=== PATIENT | female | born 1970 | race Caucasian/White ===

== ENCOUNTER → 2017-02-12 | Outpatient (CLI) | payer BC ==
--- NOTE | 2017-02-12 15:17 | RAD ---
EXAM: BREAST LEFT, DIGITAL DIAGNOSTIC BILATERAL HISTORY: Left breast lump at 7-8:00 position. COMPARISON: Priors including 04/29/2014 Standard mammographic views are obtained of the bilateral breasts. FINDINGS: The breast parenchyma Is heterogenously dense, which could reduce sensitivity of mammography. Breast parenchyma level III.. There is no definite new suspicious spiculated mass or worrisome new cluster of microcalcifications. The patient was then sent ultrasound to further evaluate the region of concern for lump. Focused ultrasound images were obtained of the 7-8:00 position of the left breast at the region of concern. There is no definite mass or drainable fluid collection in the region. IMPRESSION: No definite new suspicious mass. If the patient has persistent symptoms or a new clinical finding the examination can be repeated at that time to assess whether there has been interval development of a mammographically or sonographically visible mass. BI-RADS CATEGORY: 1 NEGATIVE RECOMMENDED FOLLOW-UP: 12M 12 MONTH FOLLOW-UP PQRS compliance statement: Patient information was entered into a reminder system with a target due date for the next mammogram. Mammography is a sensitive method for finding small breast cancers, but it does not detect them all and is not a substitute for careful clinical examination. A negative mammogram does not negate a clinically suspicious finding and should not result in delay in biopsying a clinically suspicious abnormality. "Our facility is accredited by the [employer] Mammography [employer]."
== END | disposition home or self-care (01) ==
LOC: KCIC MAMMO 13:53
PROVIDERS: ATTEND Nurse Practitioner Family
DX: N63 Unspecified lump in breast (principal); Z80.3 Family history of malignant neoplasm of breast
CPT/HCPCS: 76641; G0204; 77066

== ENCOUNTER → 2019-01-15 | Outpatient (CLI) | payer BC ==
--- NOTE | 2019-01-15 16:08 | KCIC ---
Bilateral digital screening mammograms with 3-D tomosynthesis: Reason for examination: Routine screening. Comparison is made to previous studies dated 02/12/2017 and 11/30/2015. Bilateral mammograms in CC and oblique projections were obtained with 2-D imaging and 3-D tomosynthesis imaging on a Siemens Inspiration unit and reviewed on the workstation. Interpretation was made with the benefit of CAD. The skin and nipples show no abnormalities. No abnormal axillary lymph nodes are seen. The breast parenchyma is heterogeneously dense. (Breast density: Category C.) There appears to be some focally increased nodularity inferiorly in the right breast just below the nipple line. This may be located in the dense parenchyma in the lateral breast but recommend further evaluation with coned compression views in lateral and cc projections and right breast ultrasound. There are no other dominant masses, suspicious calcifications or architectural distortion. Impression: Focal increased nodularity in the inferior right breast seen on oblique view just below the nipple line. This may lie in the dense parenchyma laterally in the breast. Recommend further evaluation with coned compression views in true lateral and cc projections and right breast ultrasound. Your patient's mammogram demonstrates that she has dense breast tissue (breast density category C or D), which could hide abnormalities, and if she has other risk factors for breast cancer that have been identified, she might benefit from supplemental screening tests that may be suggested by you as her ordering physician. Dense breast tissue, in and of itself, is a relatively common condition. Therefore, this information is not provided to cause undue concern, but rather to raise your awareness and to promote discussion with your patient regarding the presence of other risk factors, in addition to dense breast tissue. Your patient's mammography results will be sent to her. BI-RAD Category 0: Incomplete. Needs additional imaging evaluation. "Our facility is accredited by the [employer] Mammography [employer]." This patient's information has been entered into a reminder system for the patient to be notified with the results of her examination and a target date for the next mammogram. Electronically signed by: Diane Shepard MD (01/15/2019 4:05 PM) [id number]
== END | disposition home or self-care (01) ==
LOC: KCIC MAMMO 12:13
PROVIDERS: ATTEND Family Medicine
DX: Z12.31 Encounter for screening mammogram for malignant neoplasm of breast (principal)
CPT/HCPCS: 77063; 77067

== ENCOUNTER → 2019-01-26 | Outpatient (CLI) | payer BC ==
--- NOTE | 2019-01-26 14:16 | KCIC ---
Right breast diagnostic digital mammogram: Reason for examination: Nodular density on screening mammogram. Comparison is made to mammographic examination dated 01/15/2019. Coned compression views were obtained in CC and lateral projections. With these additional views, the nodularity appears to be less prominent but considering the parenchymal density, further evaluation with ultrasound will be performed. IMPRESSION: Nodularity is less prominent but considering parenchymal density, ultrasound evaluation will follow. BI-RADS Category 0: Incomplete. Needs additional imaging evaluation. Right breast ultrasound Ultrasound examination of the lateral right breast and axilla was performed. In the 6:00 retroareolar position, there is some ductal ectasia. In the 8:00 position 4.5 cm from the nipple, there is a small focus of fibrocystic change measuring 3.2 mm in size. In the axillary tail region at the 11:00 position 8 cm from the nipple, there is however a 4.6 mm hypoechoic somewhat irregularly marginated lesion. Further evaluation with ultrasound guided biopsy is recommended. No other abnormal appearing lymph nodes are seen in the right axilla. IMPRESSION: Small 4.2 mm hypoechoic fibrocystic type lesion at the 8:00 position which may correspond with the area of mammographic concern. 4.6 mm hypoechoic somewhat irregularly marginated lesion in the axillary tail of Hernandez at the 11:00 position 8 cm from the nipple. Recommend further evaluation with ultrasound-guided biopsy. BI-RADS Category 4: Suspicious. These findings have been discussed with the patient and Dr. Amaro's nurse, Lisa, was notified about these findings at 1408 on 01/26/2019. "Our facility is accredited by the [employer] Mammography [employer]." This patient's information has been entered into a reminder system for the patient to be notified with the results of her examination and a target date for the next mammogram. Electronically signed by: Diane Shepard MD (01/26/2019 2:13 PM) [id number]
== END | disposition home or self-care (01) ==
LOC: KCIC MAMMO 12:56
PROVIDERS: ATTEND Family Medicine
DX: N60.41 Mammary duct ectasia of right breast (principal); N64.89 Other specified disorders of breast
CPT/HCPCS: 76641; 77065

== ENCOUNTER → 2019-07-03 | Outpatient (CLI) | payer BC ==
--- NOTE | 2019-07-03 13:38 | KCIC ---
EXAM: Left hip, 2 views. HISTORY: Pain. COMPARISON: None. FINDINGS: 2 views of the left hip are obtained. There is no fracture, dislocation or subluxation. IMPRESSION: No acute osseous finding. Electronically signed by: Maddie Fajardo MD (07/03/2019 1:35 PM) [place] [id number]
== END | disposition home or self-care (01) ==
LOC: KCIC 12:02
PROVIDERS: ATTEND Family Medicine
DX: M25.552 Pain in left hip (principal)
CPT/HCPCS: 73502

== ENCOUNTER → 2020-06-22 | Outpatient (CLI) | payer BC ==
--- NOTE | 2020-06-22 10:49 | RAD ---
CHEST PA LATERAL INDICATION: Cough . COMPARISON STUDY: None. FINDINGS: Lungs: Normal lung volume. Patchy bilateral heterogeneous opacities. The tracheobronchial tree and hilar structures are normal. Pleura: No pleural effusion or pneumothorax. Heart and Mediastinum: The cardiomediastinal silhouette is normal. The great vessels of the thorax are normal. Bones and Soft Tissues: Degenerative changes of the spine. IMPRESSION: Patchy bilateral heterogeneous opacities, which could represent multifocal infection or edema. Electronically signed by: Joshua Kunz MD (06/22/2020 10:47 AM) [id number]
== END ==
LOC: RAD 10:01
DX: R91.8 Other nonspecific abnormal finding of lung field (principal); R05 Cough
CPT/HCPCS: 71046